=== PATIENT | male | born 1955 | race Caucasian/White ===

== ENCOUNTER 2021-05-12 12:19 | Emergency (ER) | payer MEDICARE ==
[~2021-05-12] VITALS: Ht 172.7 cm; Wt 90.0 kg
[2021-05-12 12:27] VITALS: TEMP 97.6
[2021-05-12 12:57] LABS: COLLECTION METHOD CLEAN CATCH
[2021-05-12 13:00] LABS: BASO % 0.3 % (0.0-2.0); EOS % 0.1 % (0-4.0); GRAN # 10.3 (1.4-6.5); GRAN % 87.7 % (42.2-75.2); HEMATOCRIT 47.7 % (42.0-52.0); LYMPH % 8.4 % (20.0-51.0); MEAN CELL VOLUME 92 fl (80.0-100.0); MEAN CORPUSCULAR HEMOGLOBIN 31 pg (27.0-31.0); MEAN CORPUSCULAR HGB CONC 34 g/dl (33.0-37.0); MEAN PLATELET VOLUME 10.5 fl (7.4-10.4); MONO # 0.4 (0.1-0.6); MONO % 3.2 % (1.7-9.3); PLATELET COUNT 183 K/mm3 (130-400); RED BLOOD COUNT 5.21 M/mm3 (4.20-5.60); REDCELL DISTRIBUTION WIDTH-CV 12.2 % (11.5-14.5)
[2021-05-12 13:06] LABS: MUCOUS Present /lpf; PH 6 (5-8); SQUAMOUS EPITHELIAL None Seen /hpf; URINE APPEARANCE Hazy; URINE BACTERIA None Seen /hpf; URINE BILIRUBIN Negative (NEGATIVE); URINE BLOOD 3+ (NEGATIVE); URINE COLOR Yellow; URINE GLUCOSE 2+ (NEGATIVE); URINE KETONE Trace (NEGATIVE); URINE LEUKOCYTE ESTERASE Negative (NEGATIVE); URINE NITRATE Negative (NEGATIVE); URINE PROTEIN(semi-quant) Negative (NEGATIVE); URINE RBC >50 /hpf; URINE UROBILINOGEN Negative (NEGATIVE)
[2021-05-12 13:13] LABS: ALANINE AMINOTRANSFERASE 27 U/L (4-49); ALBUMIN 4.5 gm/dL (3.5-5.0); ALKALINE PHOSPHATASE 79 U/L (50-136); ANION GAP 6 mmol/L (7-16); AST,SGOT 29 U/L (15-37); BILIRUBIN,TOTAL 0.6 mg/dL (0.0-1.0); BLOOD UREA NITROGEN 18 mg/dL (9-20); CALCIUM 9.8 mg/dL (8.4-10.2); CARBON DIOXIDE 27 mmol/L (22-30); CHLORIDE 108 mmol/L (98-107); CREATININE, serum 0.93 (0.66-1.25); GLUCOSE 185 mg/dL (74-106); POTASSIUM 3.8 mmol/L (3.4-5.0); SODIUM 142 mmol/L (137-145); TOTAL PROTEIN 7.6 gm/dL (6.4-8.2)
[2021-05-12 13:17] LABS: C-REACTIVE PROTEIN < 0.5 mg/dL (0.0-0.9)
[2021-05-12 15:11] VITALS: BP 122/69; PULSE 65
== END 2021-05-12 15:15 | disposition home or self-care (01) ==
LOC: COL.ER 12:19
PROVIDERS: Physician Assistant
DX: N13.2 Hydronephrosis with renal and ureteral calculous obstruction (principal); I10 Essential (primary) hypertension; Z90.49 Acquired absence of other specified parts of digestive tract
CPT/HCPCS: J1885; J2270; J2405; J7030